=== PATIENT | male | born 1930 | race Caucasian/White ===

== ENCOUNTER 2016-04-30 15:47 | Emergency (ER) | payer MEDICARE ==
[~2016-04-30] VITALS: Ht 175.2 cm; Wt 61.2 kg
[~2016-04-30 15:47] MED LIST: ASPIR-LOW81 MG; ASPIRIN81 M1; FLOMAX0.4 MG PO; HYDROCODONE BIT1 T11 PO; INDERAL 1 MG/ML PO; INDERAL20 MG; INDERAL20 MG PO; NORCO 5-325 TA1 EACH PO; [UNRECOGNIZED DRUG - OTHER]
[2016-04-30 16:35] LABS: BASO % 0.6 % (0.0-1.0); EOS # 0.1 10*3/uL (0.0-0.4); EOS % 1.9 % (1.0-4.0); HEMOGLOBIN 12.3 g/dl (14.0-18.0); LYMPH # 1.1 10*3/uL (1.3-4.4); LYMPH % 19.8 % (27.0-41.0); MEAN CELL VOLUME 91.1 fl (80.0-94.0); MEAN CORPUSCULAR HGB 30.3 pg (27.0-31.0); MEAN CORPUSCULAR HGB CONC 33.2 g/dl (33.0-37.0); MEAN PLATELET VOLUME 8.8 fl (9.6-12.3); MONO # 0.6 10*3/uL (0.1-1.0); MONO % 10.5 % (3.0-9.0); NEUT # 3.6 10*3/uL (2.3-7.9); NEUT % 66.8 % (47.0-73.0); PLATELET COUNT AUTOMATED 204 10*3/uL (130-400); RED BLOOD COUNT 4.06 10*6/uL (4.50-5.90); RED CELL DISTRI WIDTH 13.8 % (0-14.5); WHITE BLOOD COUNT 5.3 10*3/uL (4.8-10.8)
[2016-04-30 16:51] LABS: ALBUMIN 3.5 gm/dl (3.1-4.5); ALKALINE PHOSPHATASE 102 U/L (45-117); BILIRUBIN, TOTAL 0.6 mg/dl (0.2-1.0); BUN 18 mg/dl (7-24); CARBON DIOXIDE 28 mmol/L (21-32); CHLORIDE 99 mmol/L (98-107); EST GLOM FILT AFRICAN AMERICAN > 60 ml/min; GLUCOSE 99 mg/dL (65-99); POTASSIUM 4.5 mmol/L (3.5-5.1); SGOT/AST 16 IU/L (3-35); SGPT/ALT 14 U/L (12-78); SODIUM 138 mmol/L (136-145); TOTAL PROTEIN 7.2 gm/dL (6.4-8.2)
[2016-04-30 19:15] LABS: BILIRUBIN NEGATIVE (NEGATIVE); BLOOD TRACE-LYSED (NEGATIVE); CLARITY SL CLOUDY (CLEAR); COLOR YELLOW (YELLOW); GLUCOSE NEGATIVE (NEGATIVE); KETONE 1+ (NEGATIVE); LEUKO ESTERASE 2+ (NEGATIVE); NITRITE POSITIVE (NEGATIVE); PH 5.5 (5.0-9.0); PROTEIN NEGATIVE (NEGATIVE); SPECIFIC GRAVITY 1.025 (1.005-1.030); UROBILINOGEN 0.2 E.U./dl (0.2-1.0)
[2016-04-30 19:25] LABS: WBC TNTC wbc/hpf (0-5)
[2016-04-30 19:26] LABS: BACTERIA TRACE; HYALINE CAST 35-40; MUCOUS TRACE; URINE REFLEX COMMENT YES (NO)
[2016-04-30] MEDS ORDERED: BACTRIM DS 8001 TA1 PO (19:42)
[2016-05-21] MEDS ORDERED: PROPRANOLOL HCL20 MG PO (18:10)
[2016-05-21] MEDS ORDERED: NYSTATIN100000 U/M PO (20:23)
[2016-06-08] MEDS ORDERED: LIDOCAINE HCL100 M1 MM (04:29)
[2016-06-08] MEDS ORDERED: TYLENOL W/ CODEI5 ML PO (04:29)
[2016-06-26] MEDS ORDERED: PROPRANOLOL HCL20 M1 PO (19:05)
[2016-06-30] MEDS ORDERED: OMEPRAZOLE20 M2 PO (11:13)
[2016-07-06] MEDS ORDERED: PROPRANOLOL HCL20 MG PO (09:51)
== END 2016-04-30 19:47 | disposition home or self-care (01) ==
LOC: ED 15:47
PROVIDERS: Physician Assistant
DX: N30.01 Acute cystitis with hematuria (principal); R07.0 Pain in throat; Z79.899 Other long term (current) drug therapy

== ENCOUNTER 2016-07-13 23:29 | Emergency (ER) | payer MEDICARE ==
[~2016-07-13] VITALS: Ht 177.8 cm; Wt 59.4 kg
[~2016-07-13 23:29] MED LIST changes: +BACTRIM DS 8001 TA1 PO; +LIDOCAINE HCL100 M1 MM; +NYSTATIN100000 U/M PO; +OMEPRAZOLE20 M2 PO; +PROPRANOLOL HCL20 M1 PO; +PROPRANOLOL HCL20 MG PO; +TYLENOL W/ CODEI5 ML PO
[2016-07-14 00:34] LABS: EOS # 0.1 10*3/uL (0.0-0.4); EOS % 1.2 % (1.0-4.0); HEMATOCRIT 30.8 % (42.0-52.0); HEMOGLOBIN 10.3 g/dl (14.0-18.0); LYMPH # 0.6 10*3/uL (1.3-4.4); LYMPH % 14.7 % (27.0-41.0); MEAN CELL VOLUME 90.6 fl (80.0-94.0); MEAN CORPUSCULAR HGB 30.3 pg (27.0-31.0); MEAN CORPUSCULAR HGB CONC 33.4 g/dl (33.0-37.0); MEAN PLATELET VOLUME 8.4 fl (9.6-12.3); MONO # 0.5 10*3/uL (0.1-1.0); MONO % 11.2 % (3.0-9.0); NEUT % 71.9 % (47.0-73.0); PLATELET COUNT AUTOMATED 152 10*3/uL (130-400); RED CELL DISTRI WIDTH 13.8 % (0-14.5); WHITE BLOOD COUNT 4.2 10*3/uL (4.8-10.8)
[2016-07-14 00:51] LABS: ALBUMIN 2.7 gm/dl (3.1-4.5); ALKALINE PHOSPHATASE 79 U/L (45-117); BILIRUBIN, TOTAL 0.4 mg/dl (0.2-1.0); BUN 19 mg/dl (7-24); CARBON DIOXIDE 29 mmol/L (21-32); CHLORIDE 100 mmol/L (98-107); CPK 25 U/L (39-308); EST GLOM FILT AFRICAN AMERICAN > 60 ml/min; GLUCOSE 104 mg/dL (65-99); LDH 104 U/L (87-241); SGOT/AST 18 IU/L (3-35); SGPT/ALT 20 U/L (12-78); SODIUM 138 mmol/L (136-145); TOTAL PROTEIN 6.5 gm/dL (6.4-8.2)
[2016-07-14 00:53] LABS: CKMB < 0.5 ng/ml (0.5-3.6); TROPONIN I < 0.015 ng/ml (<0.045)
[2016-07-15] MEDS ORDERED: HYDROCODONE BIT1 T11 PO (17:47)
== END 2016-07-14 02:28 | disposition left against medical advice (07) ==
LOC: ED 23:29
PROVIDERS: Physician Assistant
DX: R06.02 Shortness of breath (principal); R05 Cough; Z79.899 Other long term (current) drug therapy

== ENCOUNTER 2016-07-15 16:50 | Inpatient (IN) | payer MEDICARE ==
[~2016-07-15] VITALS: Ht 177.8 cm; Wt 57.6 kg
--- NOTE | ~2016-07-15 | O ---
[place], [place] OPERATIVE NOTE NAME: BEN JENKINS UNIT #: [id number] ROOM: 406 DOCTOR: MAYDA MULLINS MD BIRTHDATE: [birth year] DOS: ENDOSCOPIC REPORT INDICATIONS: An 86-year-old patient who has presented with throat carcinoma, unable to swallow, weight loss, old history of radiation therapy in 2016. PAST MEDICAL HISTORY: Laryngeal carcinoma, benign prostatic hypertrophy, coronary artery disease, esophageal stricture, protein malnutrition, weight loss, old history of tobacco. PAST SURGICAL HISTORY: Amputation of the left hand finger, coronary artery disease stent. Knee surgery left-sided. SOCIAL HISTORY: Nonsmoker, nonalcohol consumer presently. FAMILY HISTORY: Noncontributory. ALLERGIES: No known medication. MEDICATIONS: Reviewed. PROCEDURE: Today's procedure part of investigation and therapy is panendoscopy plus PEG tube placement. PREMEDICATION: Versed and Diprivan. SCOPE: Olympus forward-viewing gastroscope Q10 video. REPORT: After putting the patient in the left lateral position and after application of lubricant to the scope, the scope was introduced. Thereafter, under direct visualization, I advanced through the hypopharynx. Very difficult intubation due to the history of carcinoma, status post radiation. However, the esophagus stricture was over came with the scope. Gastric pouch was approached and duodenal patency assured and subxiphoid leaning to left. Best transillumination sign was defined. Xylocaine 2 mL was injected. Trocar was introduced in same spot. Guidewire was advanced, grasped with forceps and orally extracted. Gastrostomy tube Prydeinig 20 was anchored to it, orally pulled and recovered from the surface of the abdomen. Anchors placed, patency checked, tolerated the procedure well. Photographic series of the event obtained. PLAN AND DISCUSSION: We are going to start utilization of PEG tube for feeding and medication, Fibersource 20 mL today, tomorrow increase to 30, next day to 40. Electrolyte check and clinical reassessment. [place], [place] OPERATIVE NOTE NAME: BEN JENKINS UNIT #: [id number] ROOM: 406 DOCTOR: MAYDA MULLINS MD BIRTHDATE: [birth year] MAYDA MULLINS MD CM:OPRECORD:OPERATIVE NOTE [id number] MAYDA MULLINS MD 07/18/16 2342 interface
--- NOTE | ~2016-07-15 | CON ---
[place], [place] REPORT OF CONSULTATION NAME: BEN JENKINS UNIT #: [id number] ROOM: 403 DOCTOR: WALESKA VEEISAIAS BIRTHDATE: [birth year] DOS: 07/17/2016 ATTENDING PHYSICIAN: Dr. Chappell. HISTORY OF PRESENT ILLNESS: The patient is seen on the floor in consultation. This is a patient who is known to my practice. 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 Jackson with chemoradiation. He apparently completed that therapy in 09/2015. Since that time, he has lost approximately 60 pounds and was recently seen in my office for the first time because of chronic severe throat discomfort. The patient's examination showed significant destruction of the epiglottis from recurrent carcinoma. He was taken to the operating room last week where direct laryngoscopy and biopsy of the epiglottis confirmed a diagnosis of recurrent, moderately differentiated invasive squamous cell carcinoma. He was admitted to the hospital several days ago because of dehydration. PAST MEDICAL HISTORY: Includes BPH, coronary artery disease, epiglottis carcinoma, diverticulosis, history of esophageal stricture, history of tobacco abuse. PAST SURGICAL HISTORY: Includes coronary artery stent placement, left knee surgery and amputation of finger of the left hand. CURRENT MEDICATIONS: Include Protonix, clindamycin, Restoril. ALLERGIES: He has no known drug allergies. PHYSICAL EXAMINATION: VITAL SIGNS: Currently, the patient is afebrile. Temperature 97.6 oral, pulse 65, respiratory rate 16, blood pressure 120/72. 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 IMPRESSION: 1. Recurrent supraglottic carcinoma. 2. Dehydration/malnutrition. RECOMMENDATIONS: I have had a discussion with the patient at the bedside regarding my thoughts on future treatment options. Because he has already received radiation to the neck. He most likely will require surgical intervention. I have explained ____ severe throat pain, difficulty swallowing, weight loss are complicating tissues, which could be addressed with placement of a feeding tube. At this point, the patient has declined on that recommendation. I have suggested that he have his son and call me in the office tomorrow to discuss this situation and appropriate arrangements will be made following discharge for PET scan and surgical resection. [place], [place] REPORT OF CONSULTATION NAME: BEN JENKINS UNIT #: [id number] ROOM: 403 DOCTOR: ISAIAS GALEANO MD BIRTHDATE: [birth year] ISAIAS GALEANO MD CM:CONSTR:REPORT OF CONSULTATION 1345 07/17/16 1407 interface
[2016-07-15 16:53] VITALS: BP 110/68
[2016-07-15 17:36] LABS: BASO % 0.2 % (0.0-1.0); EOS % 0.6 % (1.0-4.0); HEMATOCRIT 33.8 % (42.0-52.0); HEMOGLOBIN 11.5 g/dl (14.0-18.0); LYMPH # 0.5 10*3/uL (1.3-4.4); LYMPH % 11.2 % (27.0-41.0); MEAN CELL VOLUME 89.7 fl (80.0-94.0); MEAN CORPUSCULAR HGB 30.5 pg (27.0-31.0); MONO # 0.4 10*3/uL (0.1-1.0); MONO % 9.1 % (3.0-9.0); NEUT # 3.7 10*3/uL (2.3-7.9); NEUT % 78.3 % (47.0-73.0); RED BLOOD COUNT 3.77 10*6/uL (4.50-5.90); RED CELL DISTRI WIDTH 13.6 % (0-14.5); WHITE BLOOD COUNT 4.7 10*3/uL (4.8-10.8)
[2016-07-15 17:37] LABS: PLATELET COUNT AUTOMATED 250 10*3/uL (130-400)
[2016-07-15 17:47] LABS: ALBUMIN 2.8 gm/dl (3.1-4.5); ALKALINE PHOSPHATASE 85 U/L (45-117); BILIRUBIN, TOTAL 0.5 mg/dl (0.2-1.0); BUN 16 mg/dl (7-24); CARBON DIOXIDE 30 mmol/L (21-32); CHLORIDE 100 mmol/L (98-107); EST GLOM FILT AFRICAN AMERICAN > 60 ml/min; MAGNESIUM 2.1 mg/dL (1.5-2.1); POTASSIUM 3.9 mmol/L (3.5-5.1); SGOT/AST 16 IU/L (3-35); SGPT/ALT 16 U/L (12-78); SODIUM 141 mmol/L (136-145); TOTAL PROTEIN 7.1 gm/dL (6.4-8.2)
[2016-07-15] MEDS ORDERED: HYDROCODONE BIT1 T11 PO (17:47)
[2016-07-15 17:48] LABS: GLUCOSE 146 mg/dL (65-99)
[2016-07-15 18:23] VITALS: BP 111/59
[2016-07-15 18:25] LABS: BILIRUBIN 1+ (NEGATIVE); BLOOD TRACE-INTACT (NEGATIVE); CLARITY SL CLOUDY (CLEAR); COLOR YELLOW (YELLOW); GLUCOSE NEGATIVE (NEGATIVE); KETONE 1+ (NEGATIVE); LEUKO ESTERASE NEGATIVE (NEGATIVE); NITRITE NEGATIVE (NEGATIVE); PROTEIN TRACE (NEGATIVE); SPECIFIC GRAVITY 1.025 (1.005-1.030)
[2016-07-15 18:36] LABS: MUCOUS 2+; RBC 0-2 rbc/hpf (0-2); URINE REFLEX COMMENT YES (NO)
[2016-07-15 20:00] VITALS: BP 115/52
[2016-07-16] VITALS: BP 117/82
[2016-07-16 06:48] LABS: BASO % 0.2 % (0.0-1.0); EOS # 0.1 10*3/uL (0.0-0.4); EOS % 1.3 % (1.0-4.0); HEMATOCRIT 31.6 % (42.0-52.0); HEMOGLOBIN 10.7 g/dl (14.0-18.0); LYMPH # 0.4 10*3/uL (1.3-4.4); LYMPH % 9.2 % (27.0-41.0); MEAN CELL VOLUME 88.5 fl (80.0-94.0); MEAN CORPUSCULAR HGB CONC 33.9 g/dl (33.0-37.0); MEAN PLATELET VOLUME 8.7 fl (9.6-12.3); MONO # 0.5 10*3/uL (0.1-1.0); MONO % 10.3 % (3.0-9.0); NEUT # 3.7 10*3/uL (2.3-7.9); NEUT % 78.1 % (47.0-73.0); PLATELET COUNT AUTOMATED 194 10*3/uL (130-400); RED BLOOD COUNT 3.57 10*6/uL (4.50-5.90); RED CELL DISTRI WIDTH 13.5 % (0-14.5); WHITE BLOOD COUNT 4.7 10*3/uL (4.8-10.8)
[2016-07-16 07:30] LABS: BUN 13 mg/dl (7-24); CARBON DIOXIDE 27 mmol/L (21-32); CHLORIDE 101 mmol/L (98-107); CHOLESTEROL 124 mg/dL (<200); EST GLOM FILT AFRICAN AMERICAN > 60 ml/min; GLUCOSE 94 mg/dL (65-99); POTASSIUM 3.6 mmol/L (3.5-5.1); SODIUM 139 mmol/L (136-145); TRIGLYCERIDES 54 mg/dl (<150); VLDL CHOLESTEROL 11 mg/dL (6-40)
[2016-07-16 07:31] LABS: HDL CHOLESTEROL 56 mg/dl (40-60); INTERNATIONAL NORM RATIO 1.1 (2.0-3.5); LDL CHOLESTEROL 57 mg/dL (9-159); PROTHROMBIN TIME 11.7 SECONDS (9.0-12.4)
[2016-07-16 07:38] LABS: VITAMIN D, 25-HYDROXY 32.8 ng/mL (30-100)
[2016-07-16 07:39] LABS: FOLIC ACID 11.07 ng/mL (>5.38)
[2016-07-16 08:00] VITALS: BP 117/71
[2016-07-16 12:00] VITALS: BP 128/67
[2016-07-16 16:00] VITALS: BP 126/76
[2016-07-16 20:00] VITALS: BP 118/64
[2016-07-17] VITALS: BP 118/70
[2016-07-17 06:39] LABS: BASO % 0.2 % (0.0-1.0); EOS % 0.6 % (1.0-4.0); HEMATOCRIT 32.3 % (42.0-52.0); HEMOGLOBIN 10.8 g/dl (14.0-18.0); IG # 0.1 10*3/uL (0.0-0.1); LYMPH # 0.5 10*3/uL (1.3-4.4); LYMPH % 9.9 % (27.0-41.0); MEAN CORPUSCULAR HGB 30.1 pg (27.0-31.0); MEAN CORPUSCULAR HGB CONC 33.4 g/dl (33.0-37.0); MEAN PLATELET VOLUME 8.7 fl (9.6-12.3); MONO # 0.4 10*3/uL (0.1-1.0); MONO % 7.4 % (3.0-9.0); NEUT # 4.3 10*3/uL (2.3-7.9); NEUT % 80.6 % (47.0-73.0); PLATELET COUNT AUTOMATED 243 10*3/uL (130-400); RED BLOOD COUNT 3.59 10*6/uL (4.50-5.90); RED CELL DISTRI WIDTH 13.4 % (0-14.5); WHITE BLOOD COUNT 5.4 10*3/uL (4.8-10.8)
[2016-07-17 06:54] LABS: BUN 13 mg/dl (7-24); CARBON DIOXIDE 24 mmol/L (21-32); CHLORIDE 103 mmol/L (98-107); EST GLOM FILT AFRICAN AMERICAN > 60 ml/min; GLUCOSE 71 mg/dL (65-99); MAGNESIUM 2.3 mg/dL (1.5-2.1); PHOSPHOROUS 2.8 mg/dL (2.5-4.9); POTASSIUM 3.7 mmol/L (3.5-5.1); SODIUM 139 mmol/L (136-145)
[2016-07-17 08:00] VITALS: BP 124/64
[2016-07-17 12:00] VITALS: BP 120/72
[2016-07-17 16:00] VITALS: BP 122/76
[2016-07-17 20:00] VITALS: BP 136/81
[2016-07-18] VITALS (9 sets, daily range): BP systolic 100–160; BP diastolic 60–85
[2016-07-18 06:45] LABS: BASO % 0.2 % (0.0-1.0); EOS % 0.6 % (1.0-4.0); HEMATOCRIT 33.2 % (42.0-52.0); HEMOGLOBIN 11.3 g/dl (14.0-18.0); IG # 0.1 10*3/uL (0.0-0.1); LYMPH # 0.6 10*3/uL (1.3-4.4); LYMPH % 9.3 % (27.0-41.0); MEAN CELL VOLUME 87.1 fl (80.0-94.0); MEAN CORPUSCULAR HGB 29.7 pg (27.0-31.0); MONO # 0.6 10*3/uL (0.1-1.0); MONO % 8.9 % (3.0-9.0); NEUT % 79.9 % (47.0-73.0); PLATELET COUNT AUTOMATED 260 10*3/uL (130-400); RED BLOOD COUNT 3.81 10*6/uL (4.50-5.90); RED CELL DISTRI WIDTH 13.3 % (0-14.5); WHITE BLOOD COUNT 6.3 10*3/uL (4.8-10.8)
[2016-07-18 06:47] LABS: BUN 10 mg/dl (7-24); CARBON DIOXIDE 26 mmol/L (21-32); CHLORIDE 101 mmol/L (98-107); EST GLOM FILT AFRICAN AMERICAN > 60 ml/min; GLUCOSE 92 mg/dL (65-99); SODIUM 140 mmol/L (136-145)
[2016-07-19] VITALS: BP 128/75
[2016-07-19 06:54] LABS: BASO % 0.1 % (0.0-1.0); EOS % 0.1 % (1.0-4.0); HEMATOCRIT 30.8 % (42.0-52.0); HEMOGLOBIN 10.5 g/dl (14.0-18.0); IG # 0.1 10*3/uL (0.0-0.1); LYMPH # 0.7 10*3/uL (1.3-4.4); LYMPH % 9.2 % (27.0-41.0); MEAN CELL VOLUME 87.3 fl (80.0-94.0); MEAN CORPUSCULAR HGB 29.7 pg (27.0-31.0); MEAN CORPUSCULAR HGB CONC 34.1 g/dl (33.0-37.0); MEAN PLATELET VOLUME 8.8 fl (9.6-12.3); MONO # 0.5 10*3/uL (0.1-1.0); NEUT # 6.2 10*3/uL (2.3-7.9); NEUT % 82.7 % (47.0-73.0); PLATELET COUNT AUTOMATED 249 10*3/uL (130-400); RED BLOOD COUNT 3.53 10*6/uL (4.50-5.90); RED CELL DISTRI WIDTH 13.2 % (0-14.5); WHITE BLOOD COUNT 7.5 10*3/uL (4.8-10.8)
[2016-07-19 07:29] LABS: ALBUMIN 2.6 gm/dl (3.1-4.5); BUN 11 mg/dl (7-24); CARBON DIOXIDE 28 mmol/L (21-32); CHLORIDE 99 mmol/L (98-107); GLUCOSE 114 mg/dL (65-99); PHOSPHOROUS 2.8 mg/dL (2.5-4.9); POTASSIUM 3.2 mmol/L (3.5-5.1); SODIUM 137 mmol/L (136-145)
[2016-07-19 07:31] LABS: ALKALINE PHOSPHATASE 78 U/L (45-117); BILIRUBIN, TOTAL 0.5 mg/dl (0.2-1.0); EST GLOM FILT AFRICAN AMERICAN > 60 ml/min; SGOT/AST 13 IU/L (3-35); SGPT/ALT 15 U/L (12-78); TOTAL PROTEIN 6.1 gm/dL (6.4-8.2)
[2016-07-19 08:00] VITALS: BP 117/69
[2016-07-19] MEDS ORDERED: PROTONIX40 MG/PACK PO (11:02)
[2016-07-19] MEDS ORDERED: CLINDAMYCIN HC300 MG PO (11:08)
[2016-07-19 12:00] VITALS: BP 136/62
== END 2016-07-19 13:43 | disposition other institution (70) | DRG 177 ==
LOC: ED 16:50 → EDHOLD 17:57 → 4E 17:57
PROVIDERS: Emergency Medicine; Hospitalist; Internal Medicine
PROC: 0DH63UZ Insertion of Feeding Device into Stomach, Percutaneous Approach (ICD-10-PCS; principal; 2016-07-18)
DX: J69.0 Pneumonitis due to inhalation of food and vomit (principal); E43 Unspecified severe protein-calorie malnutrition; K92.2 Gastrointestinal hemorrhage, unspecified; E86.0 Dehydration; D64.9 Anemia, unspecified; C32.1 Malignant neoplasm of supraglottis; I25.10 Atherosclerotic heart disease of native coronary artery without angina pectoris; K29.70 Gastritis, unspecified, without bleeding; N40.0 Benign prostatic hyperplasia without lower urinary tract symptoms; Z87.891 Personal history of nicotine dependence; Z89.022 Acquired absence of left finger(s); Z95.5 Presence of coronary angioplasty implant and graft

== ENCOUNTER 2016-08-04 04:26 | Emergency (ER) | payer MEDICARE ==
[~2016-08-04] VITALS: Ht 177.8 cm; Wt 81.6 kg
[~2016-08-04 04:26] MED LIST changes: +CLINDAMYCIN HC300 MG PO; +PROTONIX40 MG/PACK PO
[2016-08-04] MEDS ORDERED: PROSCAR5 M1 PO (04:33)
[2016-08-04] MEDS ORDERED: ATIVAN0.5 MG PO (04:35)
[2016-08-04] MEDS ORDERED: DULCOLAX10 M1 RC (04:36)
[2016-08-04] MEDS ORDERED: FLOMAX0.4 MG PO (04:36)
[2016-08-04] MEDS ORDERED: MOM30 M1 PO (04:37)
[2016-08-04] MEDS ORDERED: KLONOPIN0.5 MG PO (04:37)
[2016-08-04 06:08] LABS: BILIRUBIN NEGATIVE (NEGATIVE); BLOOD NEGATIVE (NEGATIVE); CLARITY CLEAR (CLEAR); COLOR YELLOW (YELLOW); GLUCOSE NEGATIVE (NEGATIVE); KETONE NEGATIVE (NEGATIVE); LEUKO ESTERASE TRACE (NEGATIVE); NITRITE NEGATIVE (NEGATIVE); PH 7.5 (5.0-9.0); PROTEIN NEGATIVE (NEGATIVE); UROBILINOGEN 0.2 E.U./dl (0.2-1.0)
[2016-08-04 06:29] LABS: URINE REFLEX COMMENT YES (NO)
== END 2016-08-04 10:54 ==
LOC: ED 04:26
PROVIDERS: Emergency Medicine
DX: N32.0 Bladder-neck obstruction (principal); Z95.5 Presence of coronary angioplasty implant and graft; Z87.891 Personal history of nicotine dependence; N40.0 Benign prostatic hyperplasia without lower urinary tract symptoms; I25.10 Atherosclerotic heart disease of native coronary artery without angina pectoris

== ENCOUNTER 2016-11-12 11:32 | Inpatient (IN) | payer MEDICARE ==
[~2016-11-12] VITALS: Ht 180.3 cm; Wt 59.5 kg
[2016-11-12] VITALS (8 sets, daily range): BP systolic 60–152; BP diastolic 34–130
[~2016-11-12 11:32] MED LIST changes: +ATIVAN0.5 MG PEG; +DULCOLAX10 M1 RC; +HYDROCODONE BIT1 T11 PEG; +KLONOPIN0.5 MG PEG; +MOM30 M1 PO; +PROPRANOLOL HCL20 MG PEG; +PROSCAR5 M1 PO
[2016-11-12 12:07] LABS: HEMATOCRIT 37.4 % (42.0-52.0); HEMOGLOBIN 11.9 g/dl (14.0-18.0); MEAN CELL VOLUME 92.6 fl (80.0-94.0); MEAN CORPUSCULAR HGB 29.5 pg (27.0-31.0); MEAN CORPUSCULAR HGB CONC 31.8 g/dl (33.0-37.0); MEAN PLATELET VOLUME 9.8 fl (9.6-12.3); PLATELET COUNT AUTOMATED 236 10*3/uL (130-400); RED BLOOD COUNT 4.04 10*6/uL (4.50-5.90); RED CELL DISTRI WIDTH 15.1 % (0-14.5); WHITE BLOOD COUNT 3.1 10*3/uL (4.8-10.8)
[2016-11-12 12:21] LABS: ALBUMIN 2.4 gm/dl (3.1-4.5); ALKALINE PHOSPHATASE 85 U/L (45-117); BILIRUBIN, TOTAL 0.6 mg/dl (0.2-1.0); BUN 30 mg/dl (7-24); CARBON DIOXIDE 23 mmol/L (21-32); CHLORIDE 94 mmol/L (98-107); EST GLOM FILT AFRICAN AMERICAN > 60 ml/min; GLUCOSE 117 mg/dL (65-99); POTASSIUM 4.4 mmol/L (3.5-5.1); SGOT/AST 18 IU/L (3-35); SGPT/ALT 20 U/L (12-78); SODIUM 133 mmol/L (136-145); TOTAL PROTEIN 6.6 gm/dL (6.4-8.2)
[2016-11-12 12:26] LABS: DOHLE BODIES FEW; LYMPHOCYTE # 0.2 10*3/uL (1.3-4.4); METAMYELOCYTES 2 % (0-0); NEUTROPHIL # 2.8 10*3/uL (2.3-7.9); NEUTROPHILS 90 % (47-73); TOTAL CELLS COUNTED 100 #CELLS; TOXIC GRANULATION SLIGHT
[2016-11-12 12:27] LABS: PLATELET SUFFICIENCY NORMAL (NORMAL); POLYCHROMASIA SLIGHT; VACUOLATION OF NEUTROPHILS SLIGHT
[2016-11-12 13:10] LABS: BILIRUBIN NEGATIVE (NEGATIVE); BLOOD 3+ (NEGATIVE); CLARITY CLOUDY (CLEAR); COLOR YELLOW (YELLOW); GLUCOSE NEGATIVE (NEGATIVE); KETONE NEGATIVE (NEGATIVE); LEUKO ESTERASE 3+ (NEGATIVE); NITRITE POSITIVE (NEGATIVE); PROTEIN 2+ (NEGATIVE); SPECIFIC GRAVITY <= 1.005 (1.005-1.030)
[2016-11-12 13:22] LABS: BACTERIA 1+; RBC 31-40 rbc/hpf (0-2); URINE REFLEX COMMENT YES (NO); WBC 41-50 wbc/hpf (0-5)
[2016-11-12 14:01] LABS: LA>2 REFLEX 2 HR DRAW NOW
[2016-11-12 16:52] LABS: LA>2 REFLEX 4 HR DRAW NOW
[2016-11-12] MEDS ORDERED: JEVITY 1.2 CAL240 ML PEG (17:42)
[2016-11-12] MEDS ORDERED: ZOLOFT25 MG PEG (17:45)
[2016-11-12] MEDS ORDERED: PAIN RELIEVER325 MG PEG (17:48)
[2016-11-12] MEDS ORDERED: ALBUTEROL0.63 MG/3 INH (17:49)
[2016-11-12] MEDS ORDERED: AMBIEN5 MG PEG (17:49)
[2016-11-12] MEDS ORDERED: DULCOLAX10 M1 R (17:51)
[2016-11-12] MEDS ORDERED: BLISTEX MEDICATE6 GM T (17:52)
[2016-11-12] MEDS ORDERED: DRY MOUTH45 ML BC (17:53)
[2016-11-12] MEDS ORDERED: MILK OF MA1200 MG/5 PEG (17:55)
[2016-11-12] MEDS ORDERED: Zofran4 MG PEG (17:57)
[2016-11-13] VITALS (7 sets, daily range): BP systolic 80–151; BP diastolic 46–77
[2016-11-13 06:52] LABS: MEAN CORPUSCULAR HGB 28.5 pg (27.0-31.0); MEAN CORPUSCULAR HGB CONC 31.9 g/dl (33.0-37.0); MEAN PLATELET VOLUME 10.4 fl (9.6-12.3); PLATELET COUNT AUTOMATED 169 10*3/uL (130-400); RED BLOOD COUNT 3.19 10*6/uL (4.50-5.90); RED CELL DISTRI WIDTH 15.1 % (0-14.5); WHITE BLOOD COUNT 4.2 10*3/uL (4.8-10.8)
[2016-11-13 06:59] LABS: HEMATOCRIT 28.5 % (42.0-52.0); HEMOGLOBIN 9.1 g/dl (14.0-18.0); MEAN CELL VOLUME 89.3 fl (80.0-94.0)
[2016-11-13 07:01] LABS: ALBUMIN 1.7 gm/dl (3.1-4.5); ALKALINE PHOSPHATASE 52 U/L (45-117); BILIRUBIN, TOTAL 0.4 mg/dl (0.2-1.0); BUN 38 mg/dl (7-24); CARBON DIOXIDE 26 mmol/L (21-32); CHLORIDE 99 mmol/L (98-107); EST GLOM FILT AFRICAN AMERICAN > 60 ml/min; GLUCOSE 104 mg/dL (65-99); MAGNESIUM 1.9 mg/dL (1.5-2.1); POTASSIUM 4.4 mmol/L (3.5-5.1); SGOT/AST 32 IU/L (3-35); SGPT/ALT 19 U/L (12-78); SODIUM 136 mmol/L (136-145); TOTAL PROTEIN 5.3 gm/dL (6.4-8.2)
[2016-11-13 07:19] LABS: INTERNATIONAL NORM RATIO 1.7 (2.0-3.5); PROTHROMBIN TIME 18.8 SECONDS (9.0-12.4)
[2016-11-13 07:23] LABS: LYMPHOCYTE # 0.3 10*3/uL (1.3-4.4); METAMYELOCYTES 15 % (0-0); MONOCYTE # 0.2 10*3/uL (0.1-1.0); MYELOCYTES 2 % (0-0); NEUTROPHIL # 3.1 10*3/uL (2.3-7.9); NEUTROPHILS 73 % (47-73); TOTAL CELLS COUNTED 100 #CELLS
[2016-11-13 07:24] LABS: OVALOCYTES FEW; PLATELET SUFFICIENCY NORMAL (NORMAL); POLYCHROMASIA SLIGHT; TOXIC GRANULATION SLIGHT
[2016-11-14] VITALS (7 sets, daily range): BP systolic 93–132; BP diastolic 42–69
[2016-11-14 06:50] LABS: HEMATOCRIT 28.1 % (42.0-52.0); HEMOGLOBIN 9.3 g/dl (14.0-18.0); MEAN CELL VOLUME 89.2 fl (80.0-94.0); MEAN CORPUSCULAR HGB 29.5 pg (27.0-31.0); MEAN CORPUSCULAR HGB CONC 33.1 g/dl (33.0-37.0); PLATELET COUNT AUTOMATED 159 10*3/uL (130-400); RED BLOOD COUNT 3.15 10*6/uL (4.50-5.90); RED CELL DISTRI WIDTH 15.5 % (0-14.5); WHITE BLOOD COUNT 11.8 10*3/uL (4.8-10.8)
[2016-11-14 07:30] LABS: DOHLE BODIES FEW; LYMPHOCYTE # 0.5 10*3/uL (1.3-4.4); MONOCYTE # 0.2 10*3/uL (0.1-1.0); NEUTROPHIL # 11.1 10*3/uL (2.3-7.9); NEUTROPHILS 94 % (47-73); PLATELET SUFFICIENCY NORMAL (NORMAL); TOTAL CELLS COUNTED 100 #CELLS; TOXIC GRANULATION MODERATE
[2016-11-14 07:30] LABS: BUN 31 mg/dl (7-24); CARBON DIOXIDE 25 mmol/L (21-32); CHLORIDE 103 mmol/L (98-107); GLUCOSE 134 mg/dL (65-99); SODIUM 138 mmol/L (136-145)
[2016-11-14 07:36] LABS: EST GLOM FILT AFRICAN AMERICAN > 60 ml/min; FREE T4 1.12 ng/dl (0.76-1.46); POTASSIUM 3.4 mmol/L (3.5-5.1)
[2016-11-15] VITALS: BP 134/73
[2016-11-15 05:11] LABS: BUN 27 mg/dl (7-24); CARBON DIOXIDE 28 mmol/L (21-32); CHLORIDE 108 mmol/L (98-107); EST GLOM FILT AFRICAN AMERICAN > 60 ml/min; GLUCOSE 139 mg/dL (65-99); MAGNESIUM 1.9 mg/dL (1.5-2.1); PHOSPHOROUS 1.1 mg/dL (2.5-4.9); POTASSIUM 3.3 mmol/L (3.5-5.1); SODIUM 142 mmol/L (136-145)
[2016-11-15 06:08] LABS: HEMATOCRIT 27.2 % (42.0-52.0); MEAN CELL VOLUME 90.1 fl (80.0-94.0); MEAN CORPUSCULAR HGB 29.8 pg (27.0-31.0); MEAN CORPUSCULAR HGB CONC 33.1 g/dl (33.0-37.0); MEAN PLATELET VOLUME 10.4 fl (9.6-12.3); PLATELET COUNT AUTOMATED 156 10*3/uL (130-400); RED BLOOD COUNT 3.02 10*6/uL (4.50-5.90); RED CELL DISTRI WIDTH 15.7 % (0-14.5); WHITE BLOOD COUNT 13.5 10*3/uL (4.8-10.8)
[2016-11-15 07:05] LABS: BASOPHIL # 0.1 10*3/uL (0-0.1); BASOPHILS 1 % (0-1); LYMPHOCYTE # 0.4 10*3/uL (1.3-4.4); MONOCYTE # 0.8 10*3/uL (0.1-1.0); NEUTROPHIL # 12.2 10*3/uL (2.3-7.9); NEUTROPHILS 90 % (47-73); PLATELET SUFFICIENCY NORMAL (NORMAL); TOTAL CELLS COUNTED 100 #CELLS
[2016-11-15 08:00] VITALS: BP 121/72
[2016-11-15 12:00] VITALS: BP 126/63
[2016-11-15 16:37] VITALS: BP 147/75
[2016-11-15 20:00] VITALS: BP 151/84
[2016-11-16] VITALS: BP 121/72
[2016-11-16 06:36] LABS: HEMATOCRIT 28.5 % (42.0-52.0); HEMOGLOBIN 9.5 g/dl (14.0-18.0); MEAN CELL VOLUME 88.8 fl (80.0-94.0); MEAN CORPUSCULAR HGB 29.6 pg (27.0-31.0); MEAN CORPUSCULAR HGB CONC 33.3 g/dl (33.0-37.0); MEAN PLATELET VOLUME 9.7 fl (9.6-12.3); PLATELET COUNT AUTOMATED 127 10*3/uL (130-400); RED BLOOD COUNT 3.21 10*6/uL (4.50-5.90); RED CELL DISTRI WIDTH 15.7 % (0-14.5); WHITE BLOOD COUNT 8.9 10*3/uL (4.8-10.8)
[2016-11-16 07:04] LABS: BUN 21 mg/dl (7-24); CARBON DIOXIDE 29 mmol/L (21-32); CHLORIDE 108 mmol/L (98-107); EST GLOM FILT AFRICAN AMERICAN > 60 ml/min; GLUCOSE 162 mg/dL (65-99); MAGNESIUM 1.9 mg/dL (1.5-2.1); PHOSPHOROUS 1.6 mg/dL (2.5-4.9); SODIUM 144 mmol/L (136-145)
[2016-11-16 07:13] LABS: LYMPHOCYTE # 0.5 10*3/uL (1.3-4.4); MONOCYTE # 0.5 10*3/uL (0.1-1.0); NEUTROPHIL # 7.8 10*3/uL (2.3-7.9); NEUTROPHILS 88 % (47-73); OVALOCYTES FEW; PLATELET SUFFICIENCY LOW (NORMAL); POLYCHROMASIA SLIGHT; TOTAL CELLS COUNTED 100 #CELLS
[2016-11-16 08:00] VITALS: BP 112/62
[2016-11-16 12:00] VITALS: BP 115/73
[2016-11-16 16:00] VITALS: BP 132/67
[2016-11-16 20:00] VITALS: BP 120/70
[2016-11-17] VITALS: BP 127/67
[2016-11-17 08:00] VITALS: BP 118/65
[2016-11-17 12:00] VITALS: BP 126/69
== END 2016-11-17 11:40 | disposition hospice, home (50) | DRG 871 ==
LOC: ED 11:32 → 4E 12:39 → EDHOLD 12:39 → 4E 12:51
PROVIDERS: Emergency Medicine; Hospitalist; Internal Medicine Nephrology; Registered Nurse
DX: A41.9 Sepsis, unspecified organism (principal); J69.0 Pneumonitis due to inhalation of food and vomit; J96.90 Respiratory failure, unspecified, unspecified whether with hypoxia or hypercapnia; E43 Unspecified severe protein-calorie malnutrition; D64.9 Anemia, unspecified; N39.0 Urinary tract infection, site not specified; G30.9 Alzheimer's disease, unspecified; Z93.1 Gastrostomy status; F02.80 Dementia in other diseases classified elsewhere, unspecified severity, without behavioral disturbance, psychotic disturbance, mood disturbance, and anxiety; E87.1 Hypo-osmolality and hyponatremia; Z68.1 Body mass index [BMI] 19.9 or less, adult; R31.9 Hematuria, unspecified; R65.20 Severe sepsis without septic shock; Z66 Do not resuscitate; Z51.5 Encounter for palliative care; N40.0 Benign prostatic hyperplasia without lower urinary tract symptoms; I25.10 Atherosclerotic heart disease of native coronary artery without angina pectoris; B96.4 Proteus (mirabilis) (morganii) as the cause of diseases classified elsewhere; R62.7 Adult failure to thrive; K57.90 Diverticulosis of intestine, part unspecified, without perforation or abscess without bleeding; D72.819 Decreased white blood cell count, unspecified; Z89.112 Acquired absence of left hand; Z95.5 Presence of coronary angioplasty implant and graft; Z87.891 Personal history of nicotine dependence; Z79.1 Long term (current) use of non-steroidal anti-inflammatories (NSAID); Z79.899 Other long term (current) drug therapy; Z85.21 Personal history of malignant neoplasm of larynx

== ENCOUNTER 2016-11-17 12:56 | Inpatient (IN) | payer OTHER, MEDICARE ==
[~2016-11-17] VITALS: Ht 180.3 cm; Wt 59.4 kg
[~2016-11-17 12:56] MED LIST changes: +ALBUTEROL0.63 MG/3 INH; +AMBIEN5 MG PEG; +BLISTEX MEDICATE6 GM T; +DRY MOUTH45 ML BC; +DULCOLAX10 M1 R; +JEVITY 1.2 CAL240 ML PEG; +MILK OF MA1200 MG/5 PEG; +PAIN RELIEVER325 MG PEG; +ZOLOFT25 MG PEG; +Zofran4 MG PEG
[2016-11-17 16:00] VITALS: BP 95/41
[2016-11-17 20:00] VITALS: BP 115/74
[2016-11-18] VITALS: BP 90/52
[2016-11-18 08:00] VITALS: BP 102/52
[2016-11-18 12:00] VITALS: BP 110/56
[2016-11-18 16:00] VITALS: BP 141/87
[2016-11-18 20:00] VITALS: BP 144/70
[2016-11-19] VITALS: BP 140/75
[2016-11-19 08:00] VITALS: BP 160/72
[2016-11-19 12:00] VITALS: BP 146/85
[2016-11-19 16:00] VITALS: BP 115/95
[2016-11-19 20:00] VITALS: BP 152/72
[2016-11-20] VITALS: BP 131/77
[2016-11-20 08:00] VITALS: BP 120/70
[2016-11-20 12:00] VITALS: BP 133/73; BP 159/70
[2016-11-20 16:00] VITALS: BP 138/71
[2016-11-20 20:00] VITALS: BP 128/68
[2016-11-21] VITALS: BP 132/71
[2016-11-21 04:00] VITALS: BP 94/73
[2016-11-21 08:00] VITALS: BP 118/67
[2016-11-21] MEDS ORDERED: MORPHINE S20 MG/1 ML SL (09:28)
[2016-11-21] MEDS ORDERED: ATROPINE 1% OPHT5 M1 SL (09:28)
[2016-11-21] MEDS ORDERED: LORAZEPAM1 MG SL (09:28)
== END 2016-11-21 11:21 | disposition hospice, home (50) | DRG 871 ==
LOC: 4E 12:56
DX: A41.9 Sepsis, unspecified organism (principal); J69.0 Pneumonitis due to inhalation of food and vomit; J96.90 Respiratory failure, unspecified, unspecified whether with hypoxia or hypercapnia; E43 Unspecified severe protein-calorie malnutrition; Z68.1 Body mass index [BMI] 19.9 or less, adult; R65.20 Severe sepsis without septic shock; I25.10 Atherosclerotic heart disease of native coronary artery without angina pectoris; N40.0 Benign prostatic hyperplasia without lower urinary tract symptoms; D72.819 Decreased white blood cell count, unspecified; Z66 Do not resuscitate; D64.9 Anemia, unspecified